=== PATIENT | female | born 1935 | race Caucasian/White ===

== ENCOUNTER 2017-03-18 10:29 | Day surgery (SDC) | payer MEDICARE, OTHER ==
[2017-03-18] MEDS ORDERED: Lactated Ringers 1,000 ML IV SCH (11:30)
[2017-03-18] MEDS ORDERED: Sodium Chloride 0.9% 5 ML Syringe FLUSH PRN (11:30)
[2017-03-18] MEDS ORDERED: Gatifloxacin 0.5% Ophth Soln 2.5 ML Bot EYELF SCH (11:30)
[2017-03-18] MEDS: Phenylephrine 10% Ophth Soln 5 ML Bot EYELF SCH ×3 (12:15→12:41)
[2017-03-18] MEDS: Cyclopentolate 1% Opth Soln 2 ML Bottle EYELF SCH ×3 (12:23→12:46)
[2017-03-18] MEDS ORDERED: Midazolam 1 MG/ML 2 ML SDV ONE (13:44)
[2017-03-18] MEDS ORDERED: Midazolam 1 MG/ML 2 ML SDV IV ONE (14:29)
[2017-03-18] MEDS ORDERED: Balanced Salt Solution Ophth Irrig 15 ML Bottle EYELF ONE (14:49)
[2017-03-18] MEDS ORDERED: Water For Irrigation,Sterile 1,500 ML Container IRR ONE (14:49)
[2017-03-18] MEDS ORDERED: Tetracaine 0.5% 2 ML Bottle EYEBOTH ONE (14:49)
[2017-03-18] MEDS ORDERED: Balanced Salt Solution Plus Ophth Irrig 500 ML Bottle IOCULAR ONE (14:49)
[2017-03-18] MEDS ORDERED: Carbachol 0.01% Intraocular 1.5 ML Vial EYELF ONE (14:50)
[2017-03-18] MEDS ORDERED: EPINEPHrine 1 MG/ML SDV ONE (14:50)
[2017-03-18] MEDS ORDERED: Dexamethasone/Neomycin/Polymyxin B Ophth Oint 3.5 GM Tube EYELF ONE (14:50)
[2017-03-18] MEDS ORDERED: Hyaluronate Sodium 1% 0.85 ML Syringe IOCULAR ONE (14:51)
[2017-03-18] MEDS ORDERED: Lidocaine 2% with EPINEPHrine 1:100,000 20 ML MDV INJECT ONE (14:51)
[2017-03-18] MEDS ORDERED: Lidocaine 1% 10 ML MDV INJECT ONE (14:51)
[2017-03-18 15:44] VITALS: BP 137/82
--- NOTE | 2017-03-18 20:47 | OR ---
DATE OF SURGERY: 03/18/2017 SURGEON: Too Delgadillo MD PREOPERATIVE DIAGNOSIS: Cataract, left eye. POSTOPERATIVE DIAGNOSIS: Cataract, left eye. OPERATION PERFORMED: Phacoemulsification with posterior chamber lens insertion, left eye. FINDINGS: The patient was taken to the operating room where appropriate anesthesia, sedation and monitoring were provided. A retrobulbar block was given on the left side. The eye was massaged and was found to be appropriately soft. The eye and eyelids were then prepped and draped in the usual sterile manner. A lid speculum was placed. A micro sharp blade was used to enter the anterior chamber inside the limbus inferior-temporally. Xylocaine was irrigated into the eye at this site. Healon was irrigated into the eye through this site. Then using a 2.85 mm corneal blade an entry was made into the anterior chamber just inside the limbus temporally. Healon was again irrigated into the eye. Then using a cystitome, the anterior capsulorrhexis was created. The lens nucleus was hydrodissected using a 27 gauge cannula and balanced salt solution. The phacoemulsification unit was introduced through the temporal site and the Giovany spatula through the inferior temporal site. In so doing, the lens nucleus was phacoemulsified. The cortical fragments of the lens were removed using the irrigation aspiration unit. The posterior capsule was polished. Healon was irrigated into the eye. The posterior chamber lens was inserted and rotated into position inside the capsular bag. The Healon was irrigated out of the eye. Miostat was irrigated into the eye and the pupil rounded nicely. A single interrupted 10-0 Nylon suture was placed through the temporal corneal incision site. Balanced salt solution was irrigated into the eye. The wound was tested and found to be tight. Maxitrol ointment was placed into the patient's left eye. The eyelids were closed and an eye patch and whitman shield were placed. The patient left the operating room in good condition. /[id number]/MODL
== END 2017-03-18 15:42 | disposition home or self-care (01) ==
LOC: KA.SDS 10:29
PROVIDERS: ATTEND Ophthalmology
DX: H26.9 Unspecified cataract (principal); I10 Essential (primary) hypertension; I25.10 Atherosclerotic heart disease of native coronary artery without angina pectoris; E03.9 Hypothyroidism, unspecified; E78.00 Pure hypercholesterolemia, unspecified; G89.29 Other chronic pain; M54.42 Lumbago with sciatica, left side; K21.9 Gastro-esophageal reflux disease without esophagitis; Z79.82 Long term (current) use of aspirin; Z79.899 Other long term (current) drug therapy; Z88.0 Allergy status to penicillin; Z91.041 Radiographic dye allergy status; Z95.1 Presence of aortocoronary bypass graft; Z90.710 Acquired absence of both cervix and uterus; Z90.722 Acquired absence of ovaries, bilateral; Z90.79 Acquired absence of other genital organ(s); Z90.89 Acquired absence of other organs; Z98.890 Other specified postprocedural states; Z87.891 Personal history of nicotine dependence
CPT/HCPCS: 66984; A9270; J0171; J2250; J7120; 00142; V2632

== ENCOUNTER 2017-04-15 07:25 | Day surgery (SDC) | payer MEDICARE, OTHER ==
[2017-04-15] MEDS ORDERED: Lactated Ringers 1,000 ML IV SCH (07:35)
[2017-04-15] MEDS ORDERED: Sodium Chloride 0.9% 5 ML Syringe FLUSH PRN (07:35)
[2017-04-15] MEDS: Cyclopentolate 1% Opth Soln 2 ML Bottle EYERT SCH ×3 (07:47→08:07)
[2017-04-15] MEDS: Phenylephrine 10% Ophth Soln 5 ML Bot EYERT SCH ×3 (07:52→08:12)
[2017-04-15] MEDS ORDERED: Gatifloxacin 0.5% Ophth Soln 2.5 ML Bot EYERT SCH (08:45)
[2017-04-15] MEDS ORDERED: Balanced Salt Solution Ophth Irrig 15 ML Bottle EYERT ONE (10:15)
[2017-04-15] MEDS ORDERED: Water For Irrigation,Sterile 1,500 ML Container IRR ONE (10:15)
[2017-04-15] MEDS ORDERED: Balanced Salt Solution Plus Ophth Irrig 500 ML Bottle IOCULAR ONE (10:15)
[2017-04-15] MEDS ORDERED: Carbachol 0.01% Intraocular 1.5 ML Vial EYERT ONE (10:16)
[2017-04-15] MEDS ORDERED: Tetracaine 0.5% 2 ML Bottle EYERT ONE (10:16)
[2017-04-15] MEDS ORDERED: EPINEPHrine 1 MG/ML SDV ONE (10:19)
[2017-04-15] MEDS ORDERED: Dexamethasone/Neomycin/Polymyxin B Ophth Oint 3.5 GM Tube EYERT ONE (10:19)
[2017-04-15] MEDS ORDERED: Lidocaine 2% with EPINEPHrine 1:100,000 20 ML MDV INJECT ONE (10:20)
[2017-04-15] MEDS ORDERED: Lidocaine 1% 10 ML MDV INFILT ONE (10:20)
[2017-04-15] MEDS ORDERED: Phenylephrine 10% Ophth Soln 5 ML Bot EYERT ONE (10:21)
[2017-04-15] MEDS ORDERED: Hyaluronate Sodium 1% 0.85 ML Syringe IOCULAR ONE (10:21)
[2017-04-15 10:43] VITALS: BP 153/51
--- NOTE | 2017-04-16 09:51 | OR ---
DATE OF SURGERY: 04/15/2017 SURGEON: Too Delgadillo MD PREOPERATIVE DIAGNOSIS: Cataract, right eye. POSTOPERATIVE DIAGNOSIS: Cataract, right eye. OPERATION PERFORMED: Phacoemulsification with posterior chamber lens insertion, right eye. FINDINGS: The patient was taken to the operating room where appropriate anesthesia, sedation and monitoring were provided. A retrobulbar block was given on the right side. The eye was massaged and was found to be appropriately soft. The eye and eyelids were then prepped and draped in the usual sterile manner. A lid speculum was placed. A micro sharp blade was used to enter the anterior chamber inside the limbus superior-temporally. Xylocaine was irrigated into the eye at this site. Healon was irrigated into the eye through this site. Then using a 2.85 mm corneal blade an entry was made into the anterior chamber just inside the limbus temporally. Healon was again irrigated into the eye. Then using a cystitome, the anterior capsulorrhexis was created. The lens nucleus was hydrodissected using a 27 gauge cannula and balanced salt solution. The phacoemulsification unit was introduced through the temporal site and the Giovany spatula through the superior temporal site. In so doing, the lens nucleus was phacoemulsified. The cortical fragments of the lens were removed using the irrigation aspiration unit. The posterior capsule was polished. Healon was irrigated into the eye. The posterior chamber lens was inserted and rotated into position inside the capsular bag. The Healon was irrigated out of the eye. Miostat was irrigated into the eye and the pupil rounded nicely. A single interrupted 10-0 Nylon suture was placed through the temporal corneal incision site. Balanced salt solution was irrigated into the eye. The wound was tested and found to be tight. Maxitrol ointment was placed into the patient's right eye. The eyelids were closed and an eye patch and whitman shield were placed. The patient left the operating room in good condition. /[id number]/MODL
== END 2017-04-15 10:55 | disposition home or self-care (01) ==
LOC: KA.SDS 07:25
PROVIDERS: ATTEND Ophthalmology
DX: H26.9 Unspecified cataract (principal); I25.10 Atherosclerotic heart disease of native coronary artery without angina pectoris; I10 Essential (primary) hypertension; K21.9 Gastro-esophageal reflux disease without esophagitis; E03.9 Hypothyroidism, unspecified; E78.5 Hyperlipidemia, unspecified; Z95.1 Presence of aortocoronary bypass graft; Z79.82 Long term (current) use of aspirin; Z79.899 Other long term (current) drug therapy; Z88.0 Allergy status to penicillin; Z91.041 Radiographic dye allergy status; J30.2 Other seasonal allergic rhinitis
CPT/HCPCS: 66984; A9270; J0171; J7120; 00142; V2632

== ENCOUNTER 2023-04-03 14:54 | Emergency (ER) | payer MEDICARE, OTHER ==
[2023-04-03] MEDS ORDERED: Sodium Chloride 0.9% 10 ML Syringe FLUSH PRN (15:16)
[2023-04-03 15:19] LABS: BASOPHILS ABSOLUTE AUTO 0.02 10^3/uL (0.00-0.10); BASOPHILS PERCENT AUTO 0.3 % (0.0-1.0); EOSINOPHILS ABSOLUTE AUTO 0.09 10^3/uL (0.10-0.30); EOSINOPHILS PERCENT AUTO 1.4 % (1.0-3.0); HEMATOCRIT 32.9 % (37.0-47.0); HEMOGLOBIN 10.8 g/dL (12.0-16.0); IMMATURE GRAN ABSOLUTE AUTO 0.01 10^3/uL (0.00-0.50); IMMATURE GRAN PERCENT AUTO 0.2 % (0.0-5.0); LYMPHOCYTES ABSOLUTE AUTO 1.49 10^3/uL (1.00-4.00); LYMPHOCYTES PERCENT AUTO 22.5 % (20.0-40.0); MEAN CORPUSCULAR HEMOGLOBIN 30.9 pg (27.0-31.0); MEAN CORPUSCULAR HGB CONC 32.8 g/dL (32.0-36.0); MEAN CORPUSCULAR VOLUME 94.3 fL (82.0-92.0); MEAN PLATELET VOLUME 10.3 fL (7.4-10.4); MONOCYTES ABSOLUTE AUTO 0.49 10^3/uL (0.10-0.80); MONOCYTES PERCENT AUTO 7.4 % (2.0-8.0); NEUTROPHILS ABSOLUTE AUTO 4.51 10^3/uL (2.50-7.00); NEUTROPHILS PERCENT AUTO 68.2 % (50.0-70.0); PLATELET COUNT,PLT 217 10^3/uL (150-400); RED BLOOD CELL COUNT 3.49 10^6/uL (3.80-5.50); RED CELL DISTRIBUTION WIDTH 13.1 % (11.5-14.5); WHITE BLOOD CELL COUNT,WBC 6.61 10^3/uL (5.00-10.00)
[2023-04-03 15:36] LABS: ALANINE AMINOTRANSFERASE,ALT 25 U/L (14-63); ALBUMIN 2.96 g/dL (3.40-5.00); ALKALINE PHOSPHATASE 95 U/L (46-116); ANION GAP 10.8 mmol/L (5-15); ASPARTATE AMNIOTRANSFERASE,AST 19 U/L (15-37); BILIRUBIN TOTAL 0.4 mg/dL (0.2-1.0); BLOOD UREA NITROGEN,BUN 36 mg/dL (7-18); CALCIUM 8.5 mg/dL (8.7-10.3); CARBON DIOXIDE,CO2 26.5 mmol/L (21.0-32.0); CHLORIDE,CL 101 mmol/L (98-107); CREATININE 1.48 mg/dL (0.51-1.17); GLUCOSE RANDOM 96 mg/dL (70-140); POTASSIUM,K 4.3 mmol/L (3.5-5.1); PROTEIN TOTAL,TP 6.3 g/dL (6.4-8.2); SODIUM,NA 134 mmol/L (136-145)
[2023-04-03 15:38] LABS: ESTIMATED GFR 34 mL/min (>=60)
[2023-04-03] MEDS: Aspirin 81 MG Tab.Chew PO ONE (15:46)
[2023-04-03 15:47] VITALS: PULSE 71
[2023-04-03] MEDS: Nitroglycerin 0.4 MG Tab.SL SL PRN (15:47)
[2023-04-03] MEDS: Nitroglycerin 0.4 MG Tab.SL ONE (15:54)
[2023-04-03] MEDS: Heparin Sodium 5,000 Units/ML Vial ONE (16:05)
[2023-04-03] MEDS: Heparin Sodium/D5W 250 ML ONE (16:15)
[2023-04-03] MEDS: Heparin Sodium 5,000 Units/ML Vial IVPUSH ONE (16:19)
[2023-04-03] MEDS: Heparin Sodium/D5W 250 ML IV SCH (16:20)
[2023-04-03 16:25] VITALS: BP 126/62
== END 2023-04-03 17:20 ==
LOC: KA.ED 14:54
DX: I21.4 Non-ST elevation (NSTEMI) myocardial infarction (principal); E78.00 Pure hypercholesterolemia, unspecified; I10 Essential (primary) hypertension; I25.2 Old myocardial infarction; M19.90 Unspecified osteoarthritis, unspecified site; Z95.1 Presence of aortocoronary bypass graft; Z79.82 Long term (current) use of aspirin; Z79.899 Other long term (current) drug therapy; Z88.0 Allergy status to penicillin; Z88.2 Allergy status to sulfonamides; Z91.041 Radiographic dye allergy status; Z91.048 Other nonmedicinal substance allergy status
CPT/HCPCS: 36415; 71045; 80053; 84484; 85025; 85730; 93005; 96365; 96376; 99285; A9270; J1644; Q3014

== ENCOUNTER 2024-02-25 10:38 | Inpatient (IN) | payer MEDICARE, OTHER ==
[2024-02-25] MEDS: Sodium Chloride 0.9% 500 ML IV SCH (11:46)
[2024-02-25] MEDS: Sodium Chloride 0.9% 500 ML ONE (12:07)
[2024-02-25] MEDS: Nirmatrelvir/Ritonavir 150 MG/100 MG Dose Pack (Renal Dose) PO SCH (12:30)
[2024-02-25] MEDS: REMDESIVIR 200 MG in Sodium Chloride 0.9% 100 ML IV ONE (13:59)
[2024-02-25] MEDS: Sodium Chloride 0.9% 50 ML IV SCH (13:59)
[2024-02-25] MEDS ORDERED: Acetaminophen/HYDROcodone 325-5 MG Tab PO PRN (14:12)
[2024-02-25] MEDS ORDERED: CARBOXYMETHYLCELLULOS EYEBOTH PRN (14:18)
[2024-02-25] MEDS ORDERED: Non-Formulary Medication 1 Each (Ciclopirox [Penlac 8% Nail Lacquer] 6.6 ML Bottle) TOP PRN (14:18)
[2024-02-25] MEDS ORDERED: Sennosides/Docusate Sodium 50-8.6 MG Tab PO PRN (14:18)
[2024-02-25] MEDS ORDERED: [UNRECOGNIZED DRUG - OTHER] EYEBOTH PRN (14:18)
[2024-02-25] MEDS ORDERED: GLYCERIN EYEBOTH PRN (14:18)
[2024-02-25] MEDS: REMDESIVIR 100 MG in Sodium Chloride 0.9% 100 ML IV SCH (14:19)
[2024-02-25] MEDS: Sodium Chloride 0.9% 1,000 ML IV SCH (15:09)
[2024-02-25] MEDS ORDERED: Polyethylene Glycol 400 15 ML Bottle EYEBOTH PRN (15:30)
[2024-02-25] MEDS: Carvedilol 12.5 MG Tab PO SCH (18:14)
[2024-02-25] MEDS: Timolol Maleate 0.5% Ophth Soln 5 ML Bottle EYEBOTH SCH (20:47)
[2024-02-25] MEDS ORDERED: Non-Formulary Medication 1 Each (Timolol Maleate/Pf [Timolol Maleate 0.5% Eye Drop] 1 EACH EYEBOTH SCH (21:00)
[2024-02-26] MEDS: guaiFENesin/Dextromethorphan 100-10 MG/5 ML Soln 5 ML Cup PO PRN (00:39)
[2024-02-26] MEDS: Acetaminophen 325 MG Tab PO PRN (03:28)
[2024-02-26] MEDS: Levothyroxine 75 MCG Tab PO SCH (05:57)
[2024-02-26 07:26] LABS: HEMATOCRIT 29.1 % (37.0-47.0); HEMOGLOBIN 9.4 g/dL (12.0-16.0); MEAN CORPUSCULAR HGB CONC 32.3 g/dL (32.0-36.0); MEAN PLATELET VOLUME 10.8 fL (7.4-10.4); RED BLOOD CELL COUNT 3.03 10^6/uL (3.80-5.50); RED CELL DISTRIBUTION WIDTH 13.2 % (11.5-14.5); WHITE BLOOD CELL COUNT,WBC 4.44 10^3/uL (5.00-10.00)
[2024-02-26 07:27] LABS: PLATELET COUNT,PLT 170 10^3/uL (150-400)
[2024-02-26 07:44] LABS: ALBUMIN 2.33 g/dL (3.40-5.00); BILIRUBIN DIRECT 0.1 mg/dL (0.0-0.2); BILIRUBIN TOTAL 0.4 mg/dL (0.2-1.0); CALCIUM 7.8 mg/dL (8.7-10.3); CARBON DIOXIDE,CO2 18.3 mmol/L (21.0-32.0); CREATININE 1.25 mg/dL (0.51-1.17); EST CRCL DRUG DOSING (CG) 26.23 mL/min; POTASSIUM,K 5.3 mmol/L (3.5-5.1)
[2024-02-26] MEDS: Aspirin 81 MG Tab.Chew PO SCH (09:21)
[2024-02-26] MEDS: atorvaSTATin 40 MG Tab PO SCH (09:22)
[2024-02-26] MEDS: Spironolactone 25 MG Tab PO SCH (09:22)
[2024-02-26] MEDS: Enoxaparin 30 MG/0.3 ML Syringe SUBCUT SCH (10:38)
[2024-02-26] MEDS: Sodium Chloride 0.9% 1,000 ML IV SCH (12:09)
[2024-02-26] MEDS: REMDESIVIR 100 MG in Sodium Chloride 0.9% 100 ML IV SCH (13:21)
[2024-02-26] MEDS: Loperamide 2 MG Cap PO PRN (16:27)
[2024-02-26] MEDS: traZODone 50 MG Tab PO PRN (21:21)
[2024-02-27] MEDS: Ondansetron 4 MG/2 ML SDV IV PRN (00:18)
[2024-02-27] MEDS: guaiFENesin 600 MG Tab.ER PO PRN (06:22)
[2024-02-27 07:29] LABS: HEMATOCRIT 28.1 % (37.0-47.0); HEMOGLOBIN 9.4 g/dL (12.0-16.0); MEAN CORPUSCULAR HGB CONC 33.5 g/dL (32.0-36.0); MEAN CORPUSCULAR VOLUME 92.7 fL (82.0-92.0); MEAN PLATELET VOLUME 10.1 fL (7.4-10.4); PLATELET COUNT,PLT 168 10^3/uL (150-400); RED BLOOD CELL COUNT 3.03 10^6/uL (3.80-5.50); WHITE BLOOD CELL COUNT,WBC 4.46 10^3/uL (5.00-10.00)
[2024-02-27 08:10] LABS: ALBUMIN 2.44 g/dL (3.40-5.00); ANION GAP 14.2 mmol/L (5-15); BILIRUBIN TOTAL 0.4 mg/dL (0.2-1.0); CALCIUM 7.8 mg/dL (8.7-10.3); CARBON DIOXIDE,CO2 18.2 mmol/L (21.0-32.0); CREATININE 1.01 mg/dL (0.51-1.17); EST CRCL DRUG DOSING (CG) 32.46 mL/min; POTASSIUM,K 4.4 mmol/L (3.5-5.1); PROTEIN TOTAL,TP 6.1 g/dL (6.4-8.2)
[2024-02-27] MEDS: Loratadine 10 MG Tab PO SCH (10:49)
[2024-02-27] MEDS: Melatonin 3 MG Tab PO PRN (20:45)
[2024-02-28 07:39] LABS: A/G RATIO 0.65; ALBUMIN 2.5 g/dL (3.40-5.00); BILIRUBIN DIRECT 0.1 mg/dL (0.0-0.2); BILIRUBIN INDIRECT 0.2 mg/dL; BILIRUBIN TOTAL 0.3 mg/dL (0.2-1.0); PROTEIN TOTAL,TP 6.3 g/dL (6.4-8.2)
[2024-02-28] MEDS ORDERED: Menthol Lozenge PO PRN ×2 (12:33→13:40)
[2024-02-29 07:22] LABS: A/G RATIO 0.64; ALBUMIN 2.44 g/dL (3.40-5.00); BILIRUBIN DIRECT 0.1 mg/dL (0.0-0.2); BILIRUBIN INDIRECT 0.3 mg/dL; BILIRUBIN TOTAL 0.4 mg/dL (0.2-1.0); PROTEIN TOTAL,TP 6.2 g/dL (6.4-8.2)
[2024-02-29 08:34] VITALS: BP 158/56; PULSE 77
== END 2024-02-29 11:41 | disposition swing bed (61) | DRG 178 ==
LOC: KA.ED 10:38 → KA.MS 12:27 → OBSVTOIN 02-26 10:38
PROVIDERS: ADMIT Internal Medicine; ATTEND Internal Medicine
PROC: XW033E5 Introduction of Remdesivir Anti-infective into Peripheral Vein, Percutaneous Approach, New Technology Group 5 (ICD-10-PCS; principal; 2024-02-25)
DX: U07.1 COVID-19 (principal); R53.1 Weakness; D84.9 Immunodeficiency, unspecified; J02.8 Acute pharyngitis due to other specified organisms; I50.22 Chronic systolic (congestive) heart failure; N17.9 Acute kidney failure, unspecified; I13.0 Hypertensive heart and chronic kidney disease with heart failure and stage 1 through stage 4 chronic kidney disease, or unspecified chronic kidney disease; I50.20 Unspecified systolic (congestive) heart failure; N18.30 Chronic kidney disease, stage 3 unspecified; I25.10 Atherosclerotic heart disease of native coronary artery without angina pectoris; I25.5 Ischemic cardiomyopathy; E86.0 Dehydration; H40.9 Unspecified glaucoma; E78.00 Pure hypercholesterolemia, unspecified; I25.2 Old myocardial infarction; M19.90 Unspecified osteoarthritis, unspecified site; E03.9 Hypothyroidism, unspecified; E86.1 Hypovolemia; Z91.09 Other allergy status, other than to drugs and biological substances; I95.9 Hypotension, unspecified; N18.31 Chronic kidney disease, stage 3a; D63.1 Anemia in chronic kidney disease; Z88.2 Allergy status to sulfonamides; Z88.0 Allergy status to penicillin; Z88.8 Allergy status to other drugs, medicaments and biological substances; Z95.1 Presence of aortocoronary bypass graft; Z98.49 Cataract extraction status, unspecified eye; Z79.82 Long term (current) use of aspirin; Z90.89 Acquired absence of other organs; Z91.041 Radiographic dye allergy status; Z79.890 Hormone replacement therapy; Z79.899 Other long term (current) drug therapy; Z90.710 Acquired absence of both cervix and uterus; Z98.890 Other specified postprocedural states; Z87.891 Personal history of nicotine dependence
CPT/HCPCS: 36415; 80053; 82248; 85027; 96360; 99285; A9270 ×9; J0248; J3490 ×2; J7030; J7040; Q3014 ×2; 71045; 80076; 93010; 96361; 96372; 99223-GT; 99232-GT; 99233-GT; 99239-GT; 99284; G0378; J1650; J2405

== ENCOUNTER 2024-02-29 12:28 | Inpatient (IN) | payer MEDICARE, OTHER ==
[2024-02-29] MEDS ORDERED: Loperamide 2 MG Cap PO PRN (12:59)
[2024-02-29] MEDS ORDERED: Sodium Chloride 0.9% 500 ML IV SCH (12:59)
[2024-02-29] MEDS ORDERED: Acetaminophen/HYDROcodone 325-5 MG Tab PO PRN (12:59)
[2024-02-29] MEDS ORDERED: Ondansetron 4 MG/2 ML SDV IV PRN (12:59)
[2024-02-29] MEDS ORDERED: Polyethylene Glycol 400 15 ML Bottle EYEBOTH PRN (12:59)
[2024-02-29] MEDS ORDERED: Acetaminophen 325 MG Tab PO PRN (12:59)
[2024-02-29] MEDS ORDERED: Sodium Chloride 0.9% 50 ML IV SCH (12:59)
[2024-02-29] MEDS: Menthol Lozenge PO PRN (17:09)
[2024-02-29] MEDS: Carvedilol 12.5 MG Tab PO SCH (18:04)
[2024-02-29] MEDS: Melatonin 3 MG Tab PO PRN (20:53)
[2024-02-29] MEDS: guaiFENesin 600 MG Tab.ER PO PRN (20:54)
[2024-02-29] MEDS: Timolol Maleate 0.5% Ophth Soln 5 ML Bottle EYEBOTH SCH (20:54)
[2024-03-01] MEDS: Levothyroxine 75 MCG Tab PO SCH (06:17)
[2024-03-01] MEDS: Sennosides/Docusate Sodium 50-8.6 MG Tab PO PRN (06:17)
[2024-03-01] MEDS: Spironolactone 25 MG Tab PO SCH (08:12)
[2024-03-01] MEDS: atorvaSTATin 40 MG Tab PO SCH (08:12)
[2024-03-01] MEDS: Aspirin 81 MG Tab.Chew PO SCH (08:12)
[2024-03-01] MEDS: Enoxaparin 30 MG/0.3 ML Syringe SUBCUT SCH (08:12)
[2024-03-01] MEDS: Loratadine 10 MG Tab PO SCH (08:13)
[2024-03-01] MEDS: Polyethylene Glycol 3350 Powder 17 GM Packet PO PRN (17:18)
[2024-03-01] MEDS: guaiFENesin/Dextromethorphan 100-10 MG/5 ML Soln 5 ML Cup PO PRN (20:50)
[2024-03-02] MEDS: Sodium Chloride 0.9% 10 ML Syringe FLUSH PRN (21:05)
[2024-03-02] MEDS: traZODone 50 MG Tab PO PRN (21:08)
[2024-03-04 07:42] LABS: BASOPHILS ABSOLUTE AUTO 0.02 10^3/uL (0.00-0.10); BASOPHILS PERCENT AUTO 0.5 % (0.0-1.0); EOSINOPHILS ABSOLUTE AUTO 0.14 10^3/uL (0.10-0.30); EOSINOPHILS PERCENT AUTO 3.3 % (1.0-3.0); HEMATOCRIT 28.4 % (37.0-47.0); HEMOGLOBIN 9.4 g/dL (12.0-16.0); IMMATURE GRAN ABSOLUTE AUTO 0.01 10^3/uL (0.00-0.50); IMMATURE GRAN PERCENT AUTO 0.2 % (0.0-5.0); LYMPHOCYTES ABSOLUTE AUTO 1.14 10^3/uL (1.00-4.00); LYMPHOCYTES PERCENT AUTO 26.7 % (20.0-40.0); MEAN CORPUSCULAR HEMOGLOBIN 30.8 pg (27.0-31.0); MEAN CORPUSCULAR HGB CONC 33.1 g/dL (32.0-36.0); MEAN CORPUSCULAR VOLUME 93.1 fL (82.0-92.0); MEAN PLATELET VOLUME 9.9 fL (7.4-10.4); MONOCYTES ABSOLUTE AUTO 0.53 10^3/uL (0.10-0.80); MONOCYTES PERCENT AUTO 12.4 % (2.0-8.0); NEUTROPHILS ABSOLUTE AUTO 2.43 10^3/uL (2.50-7.00); NEUTROPHILS PERCENT AUTO 56.9 % (50.0-70.0); PLATELET COUNT,PLT 297 10^3/uL (150-400); RED BLOOD CELL COUNT 3.05 10^6/uL (3.80-5.50); RED CELL DISTRIBUTION WIDTH 14.1 % (11.5-14.5); WHITE BLOOD CELL COUNT,WBC 4.27 10^3/uL (5.00-10.00)
[2024-03-04 07:59] LABS: ANION GAP 12.7 mmol/L (5-15); CALCIUM 8.9 mg/dL (8.7-10.3); CARBON DIOXIDE,CO2 24.2 mmol/L (21.0-32.0); CREATININE 1.15 mg/dL (0.51-1.17); EST CRCL DRUG DOSING (CG) 28.51 mL/min; MAGNESIUM 1.6 mg/dL (1.8-2.4); POTASSIUM,K 4.9 mmol/L (3.5-5.1)
[2024-03-05] MEDS: Magnesium Oxide 500 MG Tab PO ONE (08:22)
[2024-03-05 08:25] VITALS: BP 148/67; PULSE 72
== END 2024-03-05 10:04 | disposition home or self-care (01) | DRG 948 ==
LOC: KA.MS 12:28
PROVIDERS: ADMIT Internal Medicine; ATTEND Internal Medicine
DX: R53.1 Weakness (principal); I13.0 Hypertensive heart and chronic kidney disease with heart failure and stage 1 through stage 4 chronic kidney disease, or unspecified chronic kidney disease; I50.22 Chronic systolic (congestive) heart failure; N18.31 Chronic kidney disease, stage 3a; I25.5 Ischemic cardiomyopathy; I25.10 Atherosclerotic heart disease of native coronary artery without angina pectoris; Z86.16 Personal history of COVID-19
CPT/HCPCS: 36415; 80048; 83735; 85025; A9270-GY; J1650; J3490; Q3014